=== PATIENT | female | born 1985 | race Two or more races ===

== ENCOUNTER 2023-11-14 16:05 | Emergency (ER) | payer BC ==
[~2023-11-14] VITALS: Ht 165.1 cm; Wt 68.0 kg
[2023-11-14 17:19] LABS: PH,URINE 5.5 (5.0-8.0); URINE APPEARANCE Cloudy; URINE BILIRRUBIN Negative (NEGATIVE); URINE BLOOD Negative; URINE COLOR Yellow; URINE GLUCOSE Negative (NEGATIVE); URINE LEUKOCYTE Negative; URINE NITRATE Negative; URINE PROTEIN Trace (NEGATIVE)
[2023-11-14 17:19] LABS: HEMATOCRIT 36.3 % (36.0-45.00); MEAN CELL VOLUME 82.8 fL (80.00-100.00); MEAN CORPUSCULAR HEMOGLOBIN 27.3 pg (27.00-32.0); PLATELET COUNT 307 K/uL (150-450); RED BLOOD COUNT 4.38 M/uL (4.00-6.00); RED CELL DISTRIBUTION WIDTH 14.8 % (11.5-14.5)
[2023-11-14 17:22] LABS: URINE BACTERIA 3589.6 uL (0.0-1933); URINE EPITHELIAL CELLS 78.2 uL (0.0-38.8); URINE RBC 20.3 uL (0.0-20.8); URINE WBC 29.9 uL (0.0-23.2)
[2023-11-14 18:36] LABS: CALCIUM 9.5 mg/dL (8.5-10.1); CREATININE SERUM 0.84 mg/dL (0.55-1.02); GFR 76.72; POTASSIUM 4.66 mEq/L (3.5-5.1)
[2023-11-14] MEDS ORDERED: BACTRIM DS TAB1 EACH PO (19:51)
== END 2023-11-14 20:38 | disposition home or self-care (01) ==
LOC: ER 16:07
PROVIDERS: Emergency Medicine
DX: N39.0 Urinary tract infection, site not specified (principal); R10.9 Unspecified abdominal pain
CPT/HCPCS: 36415; 74177; 76700; Q9965

== ENCOUNTER 2024-09-15 09:44 | Emergency (ER) | payer BC ==
[~2024-09-15] VITALS: Ht 165.1 cm; Wt 71.7 kg
[~2024-09-15 09:44] MED LIST: BACTRIM DS TAB1 EACH PO
[2024-09-15] MEDS ORDERED: DOXYCYCLINE HY100 M2 PO (10:04)
[2024-09-15 11:15] LABS: BASO % 0.2 % (0.1-1.2); EOS # 0.24 (0.04-0.54); EOS % 4.9 % (0.7-7.0); HEMATOCRIT 38.9 % (34.1-44.9); HEMOGLOBIN 12.4 g/dL (11.2-15.7); LYMPH # 0.75 (1.18-3.74); LYMPH % 15.2 % (19.3-53.1); MEAN CORPUSCULAR HEMOGLOBIN 24.8 pg (25.6-32.2); MONO # 0.47 (0.24-0.82); MONO % 9.5 % (4.7-12.5); NEUT # 3.43 (1.56-6.13); NEUT % 69.4 % (34.0-71.1); PLATELET COUNT 206 K/uL (163-369); RED CELL DISTRIBUTION WIDTH 19.3 % (11.6-14.4)
[2024-09-15 11:28] LABS: PH,URINE 5.5 (5.0-8.0); URINE APPEARANCE Clear; URINE BILIRRUBIN Negative (NEGATIVE); URINE BLOOD Large; URINE COLOR Dark Yellow; URINE GLUCOSE Negative (NEGATIVE); URINE KETONE Trace (NEGATIVE); URINE LEUKOCYTE Negative; URINE NITRATE Negative; URINE PROTEIN 30 (NEGATIVE)
[2024-09-15 11:29] LABS: URINE BACTERIA 83.2 uL (0.0-1933); URINE EPITHELIAL CELLS 27.8 uL (0.0-38.8); URINE RBC 518.2 uL (0.0-20.8); URINE WBC 12.3 uL (0.0-23.2)
[2024-09-15 11:49] LABS: URINE CAST 0.88 uL (0.0-1.40)
[2024-09-15 12:02] LABS: ALBUMIN 3.7 gm/dL (3.4-5.0); BILIRUBIN TOTAL 0.35 mg/dL (0.3-1.2); CALCIUM 8.6 mg/dL (8.5-10.1); GFR 62.39; GLOBULINA 3.9 G/DL (2.4-3.5); POTASSIUM 3.88 mEq/L (3.5-5.1); TOTAL PROTEIN 7.6 gm/dL (6.4-8.2)
[2024-09-15 12:11] LABS: COVID-19 AG NEGATIVE (NEGATIVE); INFLUENZA A AG NEGATIVE (NEGATIVE)
== END 2024-09-15 13:43 | disposition home or self-care (01) ==
LOC: ER 09:49
PROVIDERS: Preventive Medicine Public Health & General Preventive Medicine
DX: R51.9 Headache, unspecified (principal); R20.0 Anesthesia of skin; Z20.822 Contact with and (suspected) exposure to COVID-19